=== PATIENT | male | born 1980 | race Caucasian/White ===

== ENCOUNTER 2018-08-25 17:22 | Emergency (ER) | payer OTHER ==
--- NOTE | 2018-08-25 17:32 | ER Report ---
History and Physical Time Seen By MD: 17:32 Hx. of Stated Complaint: CHEST PAIN ON THE RIGHT SIDE FOR THE LAST 30 MIN. UNABLE TO TAKE A DEEP BREATH DUE TO PAIN. NO CARDIAC HISTORY HPI/ROS CHIEF COMPLAINT: Right-sided chest pain HISTORY OF PRESENT ILLNESS: 37-year-old male patient presents to emergency room with complaint of right-sided chest pain. Patient states pain started approximately 2 hours prior to arrival. Patient states he has had some shortness of breath, however denies having any cough. Patient states he had a fever last night and felt warm this prior to the chest pain started. Patient denies any nausea, vomiting or diarrhea. Patient states he feels worse when he lays back, however feels better when he sits up. Patient states he has not taken any medication for this. Patient denies any history of heart disease. Patient states the pain is significantly worse when he takes a deep breath. REVIEW OF SYSTEMS: Respiratory: No cough, no dyspnea. Cardiovascular: As noted above Gastrointestinal: No vomiting, no abdominal pain. Musculoskeletal: No back pain. Allergies: Coded Allergies: No Known Drug Allergies (Unverified , 08/25/18) Home Meds Active Scripts Hydrocodone Bit/Acetaminophen (HYDROCODON-ACETAMINOPHEN 5-325) 1 Each Tablet, 1 EACH PO Q4-6H PRN for PAIN, #8 TAB Prov:LUZ MERLOS 08/25/18 Azithromycin 250 Mg Tab (AZITHROMYCIN 250 MG TAB) 250 Mg Tablet, 1 TAB PO QDAY, #6 TAB Take 2 tabs today and then 1 tab a day until gone. Prov:LUZ MERLOS 08/25/18 Past Medical/Surgical History Patient denies any pertinent medical or surgical history. Reviewed Nurses Notes: Yes Constitutional Vital Sign - Last 24 Hours 08/25/18 08/25/18 08/25/18 08/25/18 17:27 17:28 17:30 17:37 Temp 98.5 Pulse 108 100 Resp 16 17 B/P (MAP) 155/101 (119) 155/101 154/98 (116) Pulse Ox 95 96 O2 Delivery Room Air 08/25/18 08/25/18 08/25/18 08/25/18 17:52 18:00 18:07 18:30 Pulse 106 106 Resp 9 12 B/P (MAP) 125/81 (96) 133/86 (102) Pulse Ox 91 88 08/25/18 08/25/18 08/25/18 08/25/18 18:37 18:52 19:00 19:05 Pulse 107 102 101 B/P (MAP) 124/88 (100) Pulse Ox 95 95 96 08/25/18 08/25/18 08/25/18 08/25/18 19:20 19:30 19:35 19:50 Pulse 98 104 102 B/P (MAP) 125/85 (98) Pulse Ox 95 95 96 Physical Exam General Appearance: The patient is alert, has no immediate need for airway protection and no current signs of toxicity. Respiratory: Chest is tender to palpation on the right side, lungs are clear to auscultation. Cardiac: regular rate and rhythm Gastrointestinal: Abdomen is soft and non tender, no masses, bowel sounds normal. Musculoskeletal: Neck: Neck is supple and non tender. Extremities have full range of motion and are non tender. Skin: No rashes or lesions. DIFFERENTIAL DIAGNOSIS: After history and physical exam differential diagnosis was considered for chest pain including but not limited to myocardial ischemia, pericarditis pulmonary embolus, chest wall pain, pleural inflammation and pulmonary infectious causes. Medical Decision Making Data Points Result Diagram: 08/25/18 1745 08/25/18 1745 Laboratory Hematology Test 08/25/18 17:45 Red Blood Count 5.18 M/uL (4.00-5.60) Mean Corpuscular Volume 91.6 fL (80.0-96.0) Mean Corpuscular Hemoglobin 31.8 pg (26.0-33.0) Mean Corpuscular Hemoglobin Concent 34.7 g/dL (32.0-36.0) Red Cell Distribution Width 12.7 % (11.5-14.5) Mean Platelet Volume 9.5 fL (7.2-11.1) Neutrophils (%) (Auto) 83.3 % (39.4-72.5) Lymphocytes (%) (Auto) 10.8 % (17.6-49.6) Monocytes (%) (Auto) 4.9 % (4.1-12.4) Eosinophils (%) (Auto) 0.6 % (0.4-6.7) Basophils (%) (Auto) 0.4 % (0.3-1.4) Nucleated RBC Relative Count (auto) 0.1 /100WBC Neutrophils # (Auto) 13.4 K/uL (2.0-7.4) Lymphocytes # (Auto) 1.7 K/uL (1.3-3.6) Monocytes # (Auto) 0.8 K/uL (0.3-1.0) Eosinophils # (Auto) 0.1 K/uL (0.0-0.5) Basophils # (Auto) 0.1 K/uL (0.0-0.1) Nucleated RBC Absolute Count (auto) 0.01 K/uL D-Dimer Quantitative (PE/DVT) < 0.27 ug/ml (0-0.50) Sodium Level 137 mmol/L (137-145) Potassium Level 4.0 mmol/L (3.5-5.0) Chloride Level 98 mmol/L (98-107) Carbon Dioxide Level 26 mmol/L (22-30) Blood Urea Nitrogen 11 mg/dl (9-21) Creatinine 1.00 mg/dl (0.66-1.25) Glomerular Filtration Rate Calc > 60.0 Random Glucose 147 mg/dl (75-110) Calcium Level 9.7 mg/dl (8.4-10.2) Total Bilirubin 1.3 mg/dl (0.2-1.3) Aspartate Amino Transf (AST/SGOT) 35 U/L (0-35) Alanine Aminotransferase (ALT/SGPT) 63 U/L (0-56) Alkaline Phosphatase 78 U/L (0-126) Troponin I < 0.012 ng/ml Total Protein 7.8 g/dl (6.3-8.2) Albumin 4.7 g/dl (3.5-5.0) Chemistry Test 08/25/18 17:45 White Blood Count 16.1 k/uL (4.5-11.0) Red Blood Count 5.18 M/uL (4.00-5.60) Hemoglobin 16.5 g/dL (14.0-18.0) Hematocrit 47.4 % (42.0-52.0) Mean Corpuscular Volume 91.6 fL (80.0-96.0) Mean Corpuscular Hemoglobin 31.8 pg (26.0-33.0) Mean Corpuscular Hemoglobin Concent 34.7 g/dL (32.0-36.0) Red Cell Distribution Width 12.7 % (11.5-14.5) Platelet Count 271 K/uL (150-450) Mean Platelet Volume 9.5 fL (7.2-11.1) Neutrophils (%) (Auto) 83.3 % (39.4-72.5) Lymphocytes (%) (Auto) 10.8 % (17.6-49.6) Monocytes (%) (Auto) 4.9 % (4.1-12.4) Eosinophils (%) (Auto) 0.6 % (0.4-6.7) Basophils (%) (Auto) 0.4 % (0.3-1.4) Nucleated RBC Relative Count (auto) 0.1 /100WBC Neutrophils # (Auto) 13.4 K/uL (2.0-7.4) Lymphocytes # (Auto) 1.7 K/uL (1.3-3.6) Monocytes # (Auto) 0.8 K/uL (0.3-1.0) Eosinophils # (Auto) 0.1 K/uL (0.0-0.5) Basophils # (Auto) 0.1 K/uL (0.0-0.1) Nucleated RBC Absolute Count (auto) 0.01 K/uL D-Dimer Quantitative (PE/DVT) < 0.27 ug/ml (0-0.50) Glomerular Filtration Rate Calc > 60.0 Calcium Level 9.7 mg/dl (8.4-10.2) Total Bilirubin 1.3 mg/dl (0.2-1.3) Aspartate Amino Transf (AST/SGOT) 35 U/L (0-35) Alanine Aminotransferase (ALT/SGPT) 63 U/L (0-56) Alkaline Phosphatase 78 U/L (0-126) Troponin I < 0.012 ng/ml Total Protein 7.8 g/dl (6.3-8.2) Albumin 4.7 g/dl (3.5-5.0) Coagulation Test 08/25/18 17:45 D-Dimer Quantitative (PE/DVT) < 0.27 ug/ml EKG/Imaging EKG Interpretation 12 lead EKG: Rhythm: Sinus tachycardia with ventricular rate of 109 bpm [place]: normal QRS: normal ST segments: normal Imaging EXAMINATION: Chest 2 Views HISTORY: Chest pain. COMPARISON: None. FINDINGS: Small region of patchy parenchymal opacity in the mid right lung is suspicious for pneumonia. Left lung is clear. No pleural effusion or pneumothorax. Normal cardiomediastinal silhouette. Visualized osseous structures appear intact. IMPRESSION: 1. Mild parenchymal opacity in the mid right lung suspicious for pneumonia. Recommend follow-up imaging to document resolution. 2. No other acute findings in the chest. Report Dictated By: Mushtaq Roberson MD at 08/25/2018 8:27 PM Report E-Signed By: Mushtaq Roberson MD at 08/25/2018 8:29 PM ED Course/Re-evaluation ED Course Patient was admitted to an exam room, history and physical were obtained. Differential diagnoses were considered. On examination lungs are clear, heart is regular, abdomen is soft nontender. Patient did have tenderness to palpation of the right side of the chest. A CBC, CMP, troponin, EKG, chest x-ray were done. Troponin was negative, patient had an elevated white count of 16,000 with a left shift. Electrolytes were unremarkable. Chest x-ray did show a right upper lobe pneumonia. It appears to be consistent where the patient is having his tenderness. I discussed the findings with the patient and his . We will go ahead and discharge him home at this time. We will treat him with azithromycin, patient did receive a dose of Rocephin here in the emergency room prior to mandy [facility]ston. We will also give him a limited supply of pain medication to help pain while we are taking care of the infection. Patient verbalized understanding and agreement with plan. Patient is to follow-up with primary care provider in the next week to make sure is getting better. Patient requests to know if he is able to travel. If the patient's feeling better by Wednesday feel that there is no ind ication to prevent him from traveling as scheduled. Decision to Disposition Date: August 25, 2018 Decision to Disposition Time: 19:01 Depart Departure Latest Vital Signs Vital Signs Date Time Temp Pulse Resp B/P (MAP) Pulse Ox O2 Delivery O2 Flow Rate FiO2 08/25/18 19:50 102 96 08/25/18 19:30 125/85 (98) 08/25/18 18:07 12 08/25/18 17:28 98.5 Room Air Impression: Primary Impression: Pneumonia Condition: Improved Disposition: HOME OR SELF-CARE New Scripts Hydrocodone Bit/Acetaminophen (HYDROCODON-ACETAMINOPHEN 5-325) 1 Each Tablet 1 EACH PO Q4-6H PRN for PAIN, #8 TAB Prov: LUZ MERLOS 08/25/18 Azithromycin 250 Mg Tab (AZITHROMYCIN 250 MG TAB) 250 Mg Tablet 1 TAB PO QDAY, #6 TAB Take 2 tabs today and then 1 tab a day until gone. Prov: LUZ MERLOS 08/25/18 Patient Instructions: Community Acquired Pneumonia (ED) Additional Instructions: Take medication as prescribed. Follow up with your primary care provider next week. Return to the ER if condition worsens. If you are feeling up to it you may travel on Wednesday. Increase fluid intake. Problem Qualifiers Primary Impression: Pneumonia Pneumonia type: due to unspecified organism Laterality: right Lung location: upper lobe of lung Qualified Codes: J18.1 - Lobar pneumonia, unspecified organism LUZ MERLOS August 25, 2018 17:32
[2018-08-25] MEDS ORDERED: NS(*) 0.9% 1000 ML BAG 1,000 ML IV ONE (17:33)
[2018-08-25] MEDS ORDERED: ASPIRIN 81 MG CHEW PO ONE (17:35)
[2018-08-25] MEDS ORDERED: ONDANSETRON 4 MG/2 ML VIAL ONE (17:40)
[2018-08-25] MEDS ORDERED: MORPHINE 4 MG/ML SDV IVP ONE (17:45)
[2018-08-25 17:55] LABS: PLATELET COUNT, AUTOMATED 271 K/uL (150-450)
--- NOTE | 2018-08-25 18:07 | EKG ---
FACILITY: [facility] PATIENT NAME: SIRENA SUMNER : [id number] MR: [id number] V: [id number] EXAM DATE: ORDERING PHYSICIAN: LUZ MERLOS TECHNOLOGIST: MELLISSA Test Reason : CHEST PAIN Blood Pressure : / mmHG Vent. Rate : 109 BPM Atrial Rate : 110 BPM P-R Int : 152 ms QRS Dur : 114 ms QT Int : 330 ms P-R-T Axes : 043 085 025 degrees QTc Int : 444 ms Sinus tachycardia Nonspecific interventricular conduction delay No previous ECGs available Confirmed by BENNY OROSCO ([id number]) on 08/25/2018 11:24:15 PM Referred By: LINDA Confirmed By:BENNY OROSCO
[2018-08-25] MEDS ORDERED: cefTRIAXone(*) 1 GM VIAL 1 GM in NS(*) 0.9% 100 ML MINI-BAG 100 ML IVPB ONE (19:00)
[2018-08-25] MEDS ORDERED: AZIT-18 PO (19:03)
[2018-08-25] MEDS ORDERED: HYDR-385 PO (19:03)
[2018-08-25 19:30] VITALS: BP 125/85
--- NOTE | 2018-08-25 20:32 | RADIOLOGY IMAGING REPORT ---
FACILITY: [facility] - [place] PATIENT NAME: Zackary Edgar : 1980 MR: [id number] V: [id number] EXAM DATE: ORDERING PHYSICIAN: LUZ MERLOS TECHNOLOGIST: Location: [facility] - [place] Patient: Zackary Edgar : 1980 Visit/Account:[id number] Date of Sevice: 08/25/2018 EXAMINATION: Chest 2 Views HISTORY: Chest pain. COMPARISON: None. FINDINGS: Small region of patchy parenchymal opacity in the mid right lung is suspicious for pneumonia. Left marley ng is clear. No pleural effusion or pneumothorax. Normal cardiomediastinal silhouette. Visualized osseous structures appear intact. IMPRESSION: 1. Mild parenchymal opacity in the mid right lung suspicious for pneumonia. Recommend follow-up imagi ng to document resolution. 2. No other acute findings in the chest. Report Dictated By: Mushtaq Roberson MD at 08/25/2018 8:27 PM Report E-Signed By: Mushtaq Roberson MD at 08/25/2018 8:29 PM WSN:[id number]
== END 2018-08-25 19:59 | disposition home or self-care (01) ==
LOC: ER 18:17
DX: J18.1 Lobar pneumonia, unspecified organism (principal)
CPT/HCPCS: 71046; 84484; 85025; 85379; 93005; 96361; 96365; 96375; 99284; J0696; J2270; J2405; J7030; 82040; 82247; 82310; 82374; 82435; 82565; 82947; 84075; 84132; 84155; 84295; 84450; 84460; 84520